=== PATIENT | male | born 1930 | race Native Hawaiian/Other Pacific Islander ===

== ENCOUNTER 2017-09-27 08:54 | Inpatient (IN) ==
[2017-09-27] MEDS ORDERED: 0.9 % SODIUM CHLORIDE 1,000 ML IV ONE ×2 (09:16→10:59)
[2017-09-27] MEDS ORDERED: ONDANSETRON 4 MG/2 ML VIAL IV ONE (09:16)
--- NOTE | 2017-09-27 09:36 | Emergency Department Note ---
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 The metastasis is a new finding. Patient is brought in by because of some nausea and one episode of vomiting today and mild abdominal discomfort. Dr. Wiley has scoped him and done some laser treatment on the bladder ureteral tumor. Patient occasionally has little difficulty urinating but then seems to do well. He does have some mild dementia. History is obtained mainly from the . - Related Data Home Medications Medication Instructions Recorded Confirmed Lisinopril [Zestril] 10 mg PO DAILY 01/04/16 09/27/17 Pravastatin [Pravachol] 20 mg PO HS 01/04/16 09/27/17 aspirin 81 mg chewable tablet 81 mg PO QDAY 01/15/16 09/27/17 docusate sodium 100 mg capsule 100 mg PO QDAY cap 01/15/16 09/27/17 isosorbide dinitrate 30 mg tablet 30 mg PO QHS tab 01/15/16 09/27/17 omeprazole 40 mg capsule,delayed 40 mg PO .QAMAC cap 01/15/16 09/27/17 release Memantine HCl 10 mg PO BID 05/11/17 09/27/17 Allergies Allergy/AdvReac Type Severity Reaction Status Date / Time No Known Drug Allergies Allergy Verified 09/27/17 08:59 Review of Systems All systems ED: reviewed and negative except as stated. Past Medical History - Past Medical History [facility] Narrative: Medical History (Last Reviewed 09/23/17 @ 13:[address], [facility]) Heartburn (Chronic) Indigestion (Chronic) Tired (Chronic) Gout (Chronic 04/12/15) Blood in urine (Chronic) Frequent urination (Chronic) Burning with urination (Chronic) Clostridium difficile colitis (Chronic) Vertigo (Chronic) Fatty liver (Chronic) Gallstones (Chronic) History of diagnostic ultrasound (Chronic) Muscle spasm (Chronic) Lumbar pain (Chronic) Right knee pain (Chronic) Bacterial infection (Chronic) History of FL (myocardial infarction) (Chronic) Hard of hearing (Chronic) Dementia (Chronic) Afebrile (Chronic 01/04/16) Complicated UTI (urinary tract infection) (Chronic 01/04/16) Blood in stool (Chronic 01/04/16) Nausea, vomiting, and diarrhea (Chronic 01/04/16) Decreased urination (Chronic) Kidney stone on right side (Chronic) Kidney cysts (Chronic) Obstructive uropathy (Chronic) UTI (urinary tract infection) (Chronic) Renal failure (Chronic) History of bladder cancer (Chronic) Nausea (Chronic) Diarrhea (Chronic) C. difficile diarrhea (Chronic) Past Surgical History (Last Reviewed 09/23/17 @ 13:[address], [employer]) History of bladder surgery (Chronic) History of colonoscopy (Chronic) History of cystoscopy (Chronic) History of heart bypass surgery (Chronic) History of transurethral resection of prostate (Chronic) Family History (Last Reviewed 09/23/17 @ 13:[address], [employer] DEVELOP[employer]) Father Colon cancer Brother Esophageal cancer Medical history: Reports: coronary artery disease, hypertension, other (gout) Surgical history ED: Reports: appendectomy, herniorrhaphy, prostatectomy - Social History smoking status: Never smoker Alcohol use: Reports: Rarely Drug use: Reports: none Physical Exam Limitations: other General appearance: alert Head: atraumatic, normocephalic Eye: Present: normal appearance ENT: normal exam Neck: Present: normal inspection Chest: Present: normal inspection Respiratory: Present: normal lung sounds bilaterally Cardiovascular: Present: regular rate, normal rhythm, normal heart sounds Abdominal: Present: soft. Absent: distention, tenderness Neurological: Present: alert Psychiatric: Present: normal affect, normal mood Skin: Present: warm, dry, intact Course Vital Signs Temperature 97.0 F 09/27/17 08:54 Pulse Rate 90 09/27/17 08:54 Respiratory Rate 16 09/27/17 08:54 Blood Pressure 160/80 09/27/17 08:54 Pulse Oximetry (%) 98 09/27/17 08:54 Temperature 97.0 F 09/27/17 08:54 Pulse Rate 69 09/27/17 11:08 Respiratory Rate 34 H 09/27/17 11:08 Blood Pressure 185/78 09/27/17 11:08 Pulse Oximetry (%) 99 09/27/17 11:08 Medical Decision Making - MDM Narrative Medical decision making narrative: I discussed this case with Dr. Fam the wall attendant who did not feel he was a dialysis candidate and Dr. Veloz who will admit him to the hospital. We will institute the hyperkalemia protocol. Family is in the process of deciding what they want to do as far as aggressiveness and comfort care for the patient. - Lab Data Lab results reviewed: Yes I reviewed the patient's lab results. Result diagrams: 09/27/17 09:29 09/27/17 09:29 Lab Results 09/27/17 09/27/17 Range/Units : 09:29 WBC 10.5 (4.5-11.0) K/mcL RBC 3.53 L (4.50-5.90) M/mcL Hgb 10.0 L (13.5-16.5) g/dL Hct 29.1 L (41.0-55.0) % MCV 82.4 (80.0-100.0) fL MCH 28.3 (26.0-34.0) pg MCHC 34.3 (31.0-36.0) g/dL RDW 15.0 H (11.5-14.5) % Plt Count 268 (140-440) K/mcL MPV 8.4 (7.4-10.4) fL Gran % 63.7 (38.0-78.0) % Lymph % (Auto) 28.9 (15.5-49.0) % [place] % (Auto) 4.5 (1.0-12.0) % Eos % (Auto) 2.6 (0.0-7.0) % Baso % (Auto) 0.3 (0.0-2.0) % Gran # 6.7 (1.8-8.0) K/mcL Lymph # (Auto) 3.0 (1.5-4.8) K/mcL [place] # (Auto) 0.5 (0.1-0.9) K/mcL Eos # (Auto) 0.3 (0.0-0.7) K/mcL Baso # (Auto) 0 (0.0-0.3) K/mcL Sodium 138 (133-145) mmol/L Potassium 5.9 H* (3.3-5.1) mmol/L Chloride 100 (96-108) mmol/L Carbon Dioxide 18 L (22-30) mmol/L Anion Gap 20.0 H (8-16) BUN 83 H (8-23) mg/dl Creatinine 7.1 H* (0.7-1.2) mg/dl GFR Calculation 6 Glucose 101 (70-105) mg/dL Calcium 9.0 (8.6-10.4) mg/dl Total Bilirubin 0.3 (0.0-1.0) mg/dL AST 17 (0-37) U/l ALT 14 (0-40) U/l Alkaline Phosphatase 74 (39-117) U/L Total Protein 6.9 (5.9-8.4) gm/dL Albumin 3.3 (3.2-5.2) gm/dL Globulin 3.6 (2.2-3.7) gm/dL Albumin/Globulin Ratio 0.9 L (1.0-2.3) Disposition Pt seen by [facility]UTTER/PA only: No Clinical Impression: Dehydration, Renal failure, Hyperkalemia Disposition: Xfer As Inpt ([facility]) Condition: Fair Referrals: Alma Serrano ARNP [Primary Care Provider] - Time of Disposition: 11:32
[2017-09-27 10:10] LABS: Basophils # (Auto) 0 K/mcL (0.0-0.3); Basophils % (Auto) 0.3 % (0.0-2.0); Eosinophils # (Auto) 0.3 K/mcL (0.0-0.7); Eosinophils % (Auto) 2.6 % (0.0-7.0); Granulocytes % (Auto) 63.7 % (38.0-78.0); Lymphocytes % (Auto) 28.9 % (15.5-49.0); Mean Cell Volume 82.4 fL (80.0-100.0); Mean Corpuscular HGB Conc 34.3 g/dL (31.0-36.0); Mean Corpuscular Hemoglobin 28.3 pg (26.0-34.0); Monocytes # (Auto) 0.5 K/mcL (0.1-0.9); Monocytes % (Auto) 4.5 % (1.0-12.0); Platelet Count 268 K/mcL (140-440); RBC 3.53 M/mcL (4.50-5.90)
[2017-09-27 10:35] LABS: ALT/SGPT 14 U/l (0-40); Albumin 3.3 gm/dL (3.2-5.2); Albumin/Globulin Ratio 0.9 (1.0-2.3); Alkaline Phosphatase 74 U/L (39-117); Blood Urea Nitrogen 83 mg/dl (8-23)
[2017-09-27] MEDS ORDERED: LIDOCAINE JEL 2% 1 TUBE 30GM TOPICAL ONE ×2 (10:52→11:46)
[2017-09-27] MEDS ORDERED: SODIUM POLYSTYRENE SULFONATE 15 GM/60 ML SUSPENSION PO ONE (10:59)
[2017-09-27] MEDS ORDERED: CALCIUM CHLORIDE 1,000 MG/10 ML SYRINGE IV ONE (10:59)
[2017-09-27] MEDS ORDERED: HYDROmorphone 2 MG/ML VIAL IV PRN (10:59)
[2017-09-27] MEDS ORDERED: ALBUTEROL SULFATE 5 MG/ML NEB SOLUTION BOTTLE NEB ONE (10:59)
[2017-09-27] MEDS ORDERED: FUROSEMIDE 40 MG/4 ML VIAL IV ONE (10:59)
[2017-09-27] MEDS ORDERED: INSULIN REGULAR, HUMAN 1 UNIT/0.01 ML UNIT IV ONE (10:59)
[2017-09-27] MEDS ORDERED: DEXTROSE 50% 50 ML VIAL IV ONE (10:59)
[2017-09-27] MEDS ORDERED: ONDANSETRON 4 MG/2 ML VIAL ONE (11:10)
[2017-09-27] MEDS: ONDANSETRON 4 MG/2 ML VIAL IV ONE ×2 (11:13→11:28)
--- NOTE | 2017-09-27 12:24 | Nephrology Consult Note ---
History of Present Illness - Reason for Consult Patient information: Note initiated : 09/27/17 at 12:21 pm Service Date, if different from initiated Date: [] Patient: Denys Nina a 87 y/o M admitted on for N/V. Chief Complaint: [] Consult date: 09/27/17 acute renal failure Requesting physician: Eugene Alonzo - Chief Complaint nausea,vomiting - History of Present Illness Mr Nina is a 87 y/o white male with PMH of dementia, HTN, CAD, metastatic bladder cancer who presented to ED with c/o nausea, vomiting and mild abdominal discomfort Patient has h/o metastatic bladder cancer, metastasis to lung diagnosed last month. Patient has not been feeling well for the last 3 weeks and has been eating very little food and also not drinking much fluid, the states he atleast started drinking some water and protein drinks a week ago. He started having some nausea, vomiting and abdominal pain today and hence she brought him to ER. Patient has h/o dementia and he could not give/provide meaningful information. He did deny SOB, pain, chest pain/dizziness. No c/o LE edema no urinary symptoms no other issues reported Patient was noted to have s.creatinine of more than 7 and moderate hyperkalemia and hence nephrology was called He was given hyperkalemia protocol in the ER Review of Systems ROS unobtainable: due to mental status (Limited due to dementia) Past History Past medical history: HTN Dyslipidemia CAD dementia bladder cancer metastatic Past surgical history: recent surgical interventions for bladder cancer Past family history: not pertinent Past social history: lives with his in [place], PCP at [facility] currently no addictions Medications and Allergies Home Medications Medication Instructions Recorded Confirmed Type Lisinopril [Zestril] 10 mg PO DAILY 01/04/16 09/27/17 History Pravastatin [Pravachol] 20 mg PO HS 01/04/16 09/27/17 History aspirin 81 mg chewable tablet 81 mg PO QDAY 01/15/16 09/27/17 History docusate sodium 100 mg capsule 100 mg PO QDAY cap 01/15/16 09/27/17 History isosorbide dinitrate 30 mg tablet 30 mg PO QHS tab 01/15/16 09/27/17 History omeprazole 40 mg capsule,delayed 40 mg PO .QAMAC cap 01/15/16 09/27/17 History release Memantine HCl 10 mg PO BID 05/11/17 09/27/17 History Allergies Allergy/AdvReac Type Severity Reaction Status Date / Time No Known Drug Allergies Allergy Verified 09/27/17 08:59 Exam - Vital Signs Vital signs: Temp Pulse Resp BP Pulse Ox 97.0 F 126 H 17 134/79 95 09/27/17 08:54 09/27/17 12:16 09/27/17 12:16 09/27/17 12:16 09/27/17 12:16 - General Appearance General appearance: appears started age, chronically ill, frail EENT: mucous membranes dry Neck: no JVD Respiratory: clear (CTA) Cardiology: no rub, no edema, normal S1, normal S2 Gastrointestinal: tenderness (MILD TENDERNESS IN PERIUMBILICAL REGION) Integumentary: no rash, warm and dry Neurologic: confused Musculoskeletal: no erythema, no cyanosis Psychiatric: mood/affect appropriate Results - Lab Results 09/27/17 09:29 09/27/17 09:29 Most recent lab results Calcium 9.0 mg/dl (8.6-10.4) 09/27/17 09:29 Assessment and Plan (1) Acute on chronic renal failure acute on chronic renal failure likely dehydration, use of lisinopril contributing non oliguric, has made 300cc urine when sharp was placed need to r/o obstructive etiology, renal US ordered, also will obtain urinary studies he has received hyperkalemia protocol, will recheck labs continue IV hydration BP is a little elevated, if persistent would add amlodipine hold ACEI not a dialysis candidate given dementia and metastatic cancer, no emergent need for the same patient is DNR but would need to discuss goals of care this hospitalisation will follow along Thank you for giving me an opportunity to participate in Mr Nina's medical care , appreciate it Status: Acute
[2017-09-27 12:40] LABS: Appearance,Urine CLEAR; Bacteria,Urine 0 /hpf (0); Bilirubin,Urine NEG (NEG); Color,Urine STRAW; Glucose,Urine (UA) NEGATIVE (NEG); Leukocyte Esterase,Urine NEG /uL (NEG); Mucus,Urine FEW /hpf (0); Protein,Urine NEG (NEG); Specific Gravity,Urine 1.008 (1.000-1.035); Urine Amorphous Crystals MOD /hpf (0); Urine Blood 0.2 mg/dL (<0.03); Urine RBC 6 /hpf (0-1); Urine Squamous Epithelial Cell < 1 /hpf (0-4); Urine WBC 2 /hpf (0-4); Urobilinogen,Urine NEG (NEG)
[2017-09-27] MEDS ORDERED: ONDANSETRON 4 MG/2 ML VIAL IV PRN (12:51)
[2017-09-27] MEDS ORDERED: NON FORMULARY MEDICATION 1 DOSE MISCELL (Omeprazole 40 MG) PO SCH (12:51)
[2017-09-27 12:56] LABS: Creatinine,Urine Random 58.2 mg/dl
[2017-09-27] MEDS: 0.9 % SODIUM CHLORIDE 10 ML SYRINGE IV SCH ×2 (14:00→20:37)
--- NOTE | 2017-09-27 15:03 | Ultrasound Report ---
History: Acute renal failure Findings: The right kidney measures 6.2 x 7.0 x 12.4 cm and the left measures 4.7 x 6.6 x 11.6 cm. Mild bilateral hydronephrosis is present. The ureters are obscured by overlying bowel gas. There are multiple cysts in the right kidney. The largest is in the lower pole and measures 1.5 x 1.6 x 2.0 cm. In the upper pole of the left kidney there is a 2.6 x 3.1 x 3.4 cm cyst. In the upper hilar region of the left kidney there is a 4.3 x 4.2 cm cyst. No solid mass or calculus are present in either kidney. The renal parenchyma is normal thickness and echogenicity. Urinary bladder is decompressed by Chicas catheter. We are unable to visualize the distal ureters. Impression: Mild bilateral hydronephrosis Bilateral simple cysts in both kidneys Interpreted and Authenticated by: Cm Mireles 09/27/17
--- NOTE | 2017-09-27 15:33 | History and Physical Report ---
DATE OF ADMISSION: 09/27/2017 DATE OF ADMISSION: 09/27/2017 REASON FOR ADMISSION: Weakness, fatigue, lack of appetite and inability to function. HISTORY OF CHIEF COMPLAINT: The patient is an 87-year-old with known history of metastatic bladder cancer status post stenting and has been managed by Dr. Wiley. He lives with his and has been in his baseline state of health until roughly 2 to 2-1/2 weeks prior to presentation. The patient has been feeling increasingly weak with gradually progressive lower back pain radiating to his flanks. Over the ensuing couple of weeks, the patient has lost 4 Lbs weight along with loss of appetite, fatigue, lethargy, and inability to function. With worsening symptoms and concerns of the family, patient comes to [facility] Emergency Room and is accompanied with his Harinder, daughter and son. Initial evaluation in the ER was significant for creatinine of 7 along with potassium of 5.9. The patient was started on hyperkalemia protocol. Hospitalist Service was consulted while Nephrology was consulted for evaluation of acute renal failure. At the time of evaluation, the patient is accompanied with his , daughter and son. He was able to provide some of the history. He is fairly anxious. Most of the history was obtained from patient's and medical records. The patient denies chest pain, headache, fever, lightheadedness, changes in recent medications, or NSAID intake. He further denies bleeding, joint swelling, glandular swelling, shortness of breath. He definitely feel confused and weak and total lack of energy. REVIEW OF SYSTEMS: Ten-point review of system was performed and negative except the ones discussed above. PAST MEDICAL HISTORY: 1. Bladder cancer. 2. Dementia. 3. Coronary artery disease. 4. Dyslipidemia. 5. Hypertension. 6. GERD. CURRENT MEDICATIONS: Memantine 10 mg twice daily. Omeprazole 40. Isosorbide 30. Docusate 100. Aspirin 81. Pravastatin 20. Lisinopril 10. ALLERGIES: None significant. SOCIAL HISTORY: The patient lives with his Harinder in [place]. He has a son and daughter who live close by. The patient's primary care physician is nurse practitioner __. Denies alcoholism or smoking. FAMILY HISTORY: No relevant given advanced age. PHYSICAL EXAMINATION: GENERAL: The patient is alert but anxious. BMI 21. Height 5 feet 7 inches. VITAL SIGNS: Blood pressure 144/86, respiratory rate 18, temperature 97, pulse 126, saturation 95 percent on 2 liters of oxygen. HEENT: Pupils symmetric. Oral cavity dry. No ear or nose discharge. Head is normocephalic and atraumatic. NECK: No lymphadenopathy. HEART: S1, S2, tachycardia. ESM grade 1. CHEST: Diminished breath sounds bilateral bases. Sternotomy midline incision. ABDOMEN: Soft but tender around the flanks and suprapubic area. LOWER EXTREMITIES: No cyanosis or clubbing. No joint swelling. SKIN: No suspicious lesions but mild pallor. No joint swelling or erythema. PSYCH: Alert, cooperative, mild anxiety. NEURO: Nonfocal, moving all four extremities. LABS AND IMAGING: White count 10.5, hemoglobin 10, platelets 268. Sodium 130, potassium 5.9, creatinine 7.1, BUN 83, and anion gap 20. UA unremarkable. Renal ultrasound pending. ASSESSMENT AND PLAN: 1. Acute renal failure secondary likely to obstructive nephropathy. The patient is status post stenting performed by Dr. Wiley in the past. Renal ultrasound is pending. Crystalloids are being administered. Chicas catheter was promptly placed. Nephrology is onboard. 2. Metastatic cancer managed by urology 3. Hyperkalemia. Start hyperkalemia protocol. Repeat BMP in 6 hours. 4. Other prior medical issues: The patient will be restarted on home medications except for antihypertensives until renal function clinically improved. PLAN: 1. Admit as inpatient to PCU. 2. Hyperkalemia protocol. 3. Nephrology consultation. 4. Renal ultrasound. 5. Urology consultation if significant hydronephrosis and need for renal decompression. 6. Preexisting conditions will be managed on home meds. 7. Hospice consult as per family wishes in light of patient's advanced dementia. AA:emmanuel Job ID: [id number] Doc ID: [id number] Brent LANDA
[2017-09-27 18:48] LABS: Blood Urea Nitrogen 79 mg/dl (8-23)
[2017-09-27] MEDS: MEMANTINE 10 MG TABLET PO SCH (20:35)
[2017-09-27] MEDS: HEPARIN 5,000 UNIT/ML VIAL SQ SCH (20:35)
[2017-09-27] MEDS: DOCUSATE SODIUM 100 MG CAPSULE PO SCH (20:36)
[2017-09-27] MEDS ORDERED: SENNOSIDES/DOCUSATE SODIUM 1 TAB TABLET PO SCH (21:00)
[2017-09-27] MEDS ORDERED: SIMVASTATIN 10 MG TABLET PO SCH (21:00)
[2017-09-27] MEDS ORDERED: ISOSORBIDE DINITRATE 10 MG TABLET PO SCH (21:00)
[2017-09-28 04:54] LABS: Mean Cell Volume 82.5 fL (80.0-100.0); Mean Corpuscular HGB Conc 33.6 g/dL (31.0-36.0); Mean Corpuscular Hemoglobin 27.7 pg (26.0-34.0); Platelet Count 245 K/mcL (140-440); RBC 3.25 M/mcL (4.50-5.90); Red Cell Distribution Width 14.9 % (11.5-14.5)
[2017-09-28 05:21] LABS: ALT/SGPT 12 U/l (0-40); Albumin 3.2 gm/dL (3.2-5.2); Alkaline Phosphatase 65 U/L (39-117); Bilirubin,Direct < 0.2 mg/dL (0.0-0.3); Blood Urea Nitrogen 78 mg/dl (8-23); Gamma Glutamyl Transpeptidase 27 U/L (8-61); Uric Acid 11.1 mg/dL (2.5-8.0)
[2017-09-28] MEDS: ACETAMINOPHEN 325 MG TABLET PO PRN ×2 (05:25→09:18)
[2017-09-28] MEDS: 0.9 % SODIUM CHLORIDE 10 ML SYRINGE IV SCH ×3 (05:25→20:45)
[2017-09-28 05:43] LABS: Anisocytosis 1+ (NONE SEEN); Lymphocytes % 23 % (15-49); Monocytes % (Manual) 6 % (1-12); Ovalocytes 1+ (NONE SEEN); Platelet Estimate NORMAL (NORMAL); RBC Morphology ABNORM (NORMAL); Segmented Neutrophils % 71 % (38-78)
[2017-09-28] MEDS ORDERED: OMEPRAZOLE 20 MG CAPSULE PO SCH (07:30)
[2017-09-28] MEDS ORDERED: DOCUSATE SODIUM 100 MG CAPSULE PO SCH (09:00)
[2017-09-28] MEDS ORDERED: ASPIRIN 81 MG TAB.CHEW PO SCH (09:00)
[2017-09-28] MEDS: MEMANTINE 10 MG TABLET PO SCH ×2 (09:01→20:43)
[2017-09-28] MEDS: DOCUSATE SODIUM 100 MG CAPSULE PO SCH ×2 (09:02→20:40)
[2017-09-28] MEDS: HEPARIN 5,000 UNIT/ML VIAL SQ SCH ×2 (09:02→20:42)
[2017-09-28] MEDS: CALCIUM ACETATE 667 MG CAPSULE PO SCH ×3 (10:00→18:19)
--- NOTE | 2017-09-28 12:19 | Internal Med Progress Note ---
Medical - PN: Subj Patient information: Note initiated : 09/28/17 at 12:16 pm Service Date, if different from initiated Date: [] Patient: Denys Nina 87 y/o M admitted on 09/27/17 for N/V, Dehydration, Renal Failure, Hyperkalemia. Chief Complaint: [] Interval history: patient admitted with acute renal failure/hyperkalemia. obstructive uropathy in the setting of bladder cancer. Started on hypokalemia protocol. Nephrology on board. Admitted to ICU. 09/28- Case discussed with family and nephrology. Family considering hospice placement however would like to discuss case with urology. Subsequently Dr. Wiley urology consulted. Await further recommendations from family for initiation of hospice and end-of-life care. 20 otherwise no telemetry events. No overnight fever chills or concerns per staff. Patient sitting in chair eating breakfast. Pleasantly demented without any agitation or confusion - Constitutional Vitals: Vital Signs Temp Pulse Resp BP Pulse Ox 98.6 F 119 H 20 154/90 96 09/28/17 11:49 09/27/17 13:45 09/28/17 11:49 09/28/17 11:49 09/28/17 11:49 Period Temp Pulse Resp BP Sys/Andrade Pulse Ox Last 24 Hr 97.0 F-98.8 F 119-124 16-26 119-160/60-104 92-98 Intake and Output 09/27/17 09/28/17 09/28/17 21:59 05:59 13:59 Intake Total 360 / 360 Output Total 575 / 575 850 / 850 Balance -575 / -575 -490 / -490 Weight 137 lb 4.8 oz Intake & Output: Intake & Output 09/27/17 09/28/17 09/28/17 21:59 05:59 13:59 Intake Total 360 / 360 Output Total 575 / 575 850 / 850 Balance -575 / -575 -490 / -490 Weight 137 lb 4.8 oz Intake: Oral 360 / 360 Output: Urine Catheter Amount 575 / 575 850 / 850 Other: Stool Size Small Stool Color Brown Stool Consistency Liquid # of times incontinent of 1 Bowels General appearance: cooperative, no acute distress Exam: alert Minimally confused nonlabored breathing Foleys draining clear urine Medical - PN: Obj Da - Labs CBC & Chem 7: 09/28/17 04:00 09/28/17 04:00 Labs: Abnormal Lab Results 09/28/17 09/28/17 09/27/17 04:00 04:00 17:55 WBC 11.6 H RBC 3.25 L Hgb 9.0 L Hct 26.8 L RDW 14.9 H RBC Morphology Abnorm A Anisocytosis 1+ A Ovalocytes 1+ A Potassium 5.4 H Carbon Dioxide 21 L 18 L Anion Gap 17.0 H 21.0 H BUN 78 H 79 H Creatinine 6.9 H* 6.7 H* Glucose 112 H 156 H Uric Acid 11.1 H Phosphorus 7.2 H* Albumin/Globulin Ratio Urine Occult Blood Urine RBC Amorphous Crystals 09/27/17 09/27/17 09/27/17 11:33 09:29 09:29 WBC RBC 3.53 L Hgb 10.0 L Hct 29.1 L RDW 15.0 H RBC Morphology Anisocytosis Ovalocytes Potassium 5.9 H* Carbon Dioxide 18 L Anion Gap 20.0 H BUN 83 H Creatinine 7.1 H* Glucose Uric Acid Phosphorus Albumin/Globulin Ratio 0.9 L Urine Occult Blood 0.2 A Urine RBC 6 H Amorphous Crystals Mod A Meds: Medications Acetaminophen (Tylenol) 650 mg PO Q4-6HP PRN PRN Reason: PAIN/FEVER > 101 Last Admin: 09/28/17 09:18 Dose: 650 mg Aspirin (Aspirin) 81 mg PO QDAY [facility] Last Admin: 09/28/17 09:01 Dose: 81 mg Calcium Acetate (Phoslo) 667 mg PO TIDCC [facility] Last Admin: 09/28/17 12:09 Dose: 667 mg Docusate Sodium (Colace) 100 mg PO BID [facility] Last Admin: 09/28/17 09:02 Dose: Not Given Heparin Sodium (Porcine) (Heparin) 5,000 unit SQ Q12 [facility] Last Admin: 09/28/17 09:02 Dose: 5,000 unit Isosorbide Dinitrate (Isordil) 30 mg PO HS [facility] Last Admin: 09/27/17 20:36 Dose: 30 mg Memantine (Namenda) 10 mg PO BID [facility] Last Admin: 09/28/17 09:01 Dose: 10 mg Omeprazole (Prilosec) 40 mg PO ACB [facility] Last Admin: 09/28/17 08:09 Dose: 40 mg Ondansetron HCl (Zofran) 4 mg IV Q4-6HP PRN PRN Reason: Nausea And Vomiting Last Admin: 09/28/17 12:09 Dose: 4 mg Senna/Docusate Sodium (Senna Plus Tablet) 1 tab PO HS [facility] Last Admin: 09/27/17 20:36 Dose: Not Given Simvastatin (Zocor) 10 mg PO HS [facility] Last Admin: 09/27/17 20:36 Dose: 10 mg Sodium Chloride (Saline Flush) 10 ml IV Q8 [facility] Last Admin: 09/28/17 05:25 Dose: 10 ml Medical - PN: A/P - Time Spent With Patient Total time spent is greater than 50% in coordination of care (as documented) at patient's floor/unit and/or counseling patient: 15 - 24 minutes (1) Acute on chronic renal failure Status: Acute Assessment and plan: * Acute renal failure- nephrology on board. Likely obstructive in the setting of bladder tumor with metastasis. Creatinine 6.9. Case discussed with radiology. Recommends discontinuation of Chicas's catheter * hypokalemia down from 5.9-5.4. Status post hypokalemia protocol * Obstructive uropathy status post stenting in the past. Managed by Dr. Wiley urology * history of dementia at baseline. Continue memantine * History of CAD on aspirin and isosorbide/statin/lisinopril * DNR Plan * Dc foleys * Hospice consult * ARF mx per nephrology * pre-existing medical condition management as above Current Visit: Yes Medical - PN: Qual - VTE Deep Vein Thrombosis/Pulmonary Embolism Present on Admission: No
--- NOTE | 2017-09-28 13:27 | Nephrology Progress Note ---
Subjective Patient information: Note initiated : 09/28/17 at 1:25 pm Service Date, if different from initiated Date: [] Patient: Denys Nina 87 y/o M admitted on 09/27/17 for N/V, Dehydration, Renal Failure, Hyperkalemia. Chief Complaint: [] Principal diagnosis: acute renal failure Interval history: received IVF with no improvement in renal function, though non oliguric renal US shows mild hydronephrosis patient denies SOB, CP no edema eating ok no reports of nausea, vomiting no other GI issues Pertinent ROS: as listed above Objective - Vital Signs Vital signs: Vital Signs Temp Pulse Resp BP BP Pulse Ox 09/28/17 11:49 98.6 F 20 154/90 96 09/28/17 09:18 97.7 F 09/28/17 09:01 160/90 09/28/17 08:23 22 144/74 09/28/17 08:01 97.7 F 143/104 92 09/28/17 07:30 92 09/28/17 07:01 145/78 09/28/17 06:01 151/86 09/28/17 05:01 23 H 152/90 98 09/28/17 04:01 98.8 F 20 136/79 96 09/28/17 03:01 21 143/73 98 09/28/17 02:01 26 H 149/69 98 09/28/17 01:01 22 127/85 95 09/28/17 00:01 20 131/76 96 09/28/17 00:00 97 09/27/17 23:01 23 H 135/86 97 09/27/17 22:24 19 139/79 95 09/27/17 20:01 22 142/60 94 09/27/17 18:00 96 09/27/17 16:00 98.1 F 16 119/64 98 09/27/17 13:45 98 F 119 H 18 144/86 95 Intake and Output 09/27/17 09/28/17 09/28/17 21:59 05:59 13:59 Intake Total 360 / 360 Output Total 575 / 575 850 / 850 Balance -575 / -575 -490 / -490 Intake: Oral 360 / 360 Output: Urine Catheter Amount 575 / 575 850 / 850 Other: Stool Size Small Stool Color Brown Stool Consistency Liquid # of times incontinent of 1 Bowels Weight 137 lb 4.8 oz Intake & Output: Intake & Output 09/27/17 09/28/17 09/28/17 21:59 05:59 13:59 Intake Total 360 / 360 Output Total 575 / 575 850 / 850 Balance -575 / -575 -490 / -490 Weight 137 lb 4.8 oz Intake: Oral 360 / 360 Output: Urine Catheter Amount 575 / 575 850 / 850 Other: Stool Size Small Stool Color Brown Stool Consistency Liquid # of times incontinent of 1 Bowels - General Appearance General appearance: appears started age, chronically ill, frail EENT: mucous membranes moist Neck: no JVD Respiratory: clear Cardiology: no rub, no edema, normal S1, normal S2 Gastrointestinal: no tenderness, no guarding Integumentary: warm and dry Neurologic: no focal deficit, confused Musculoskeletal: no erythema, no cyanosis Psychiatric: mood/affect appropriate - Lab 09/28/17 04:00 09/28/17 04:00 Most recent lab results Calcium 8.6 mg/dl (8.6-10.4) 09/28/17 04:00 Phosphorus 7.2 mg/dL (2.7-4.5) H* 09/28/17 04:00 Magnesium 1.6 mg/dL (1.6-2.5) 09/28/17 04:00 Assessment and Plan (1) Acute on chronic renal failure s.creatinine still at 6.9 non oliguric K is at 5.4 again, mild acidosis did receive 4L of IVF with no significant change in renal function UA shows no proteinuria, some RBC fena is 2.8% no uremic symptoms, fluid status stable mild K issues and mild acidosis basically no emergent need for [employer] not a candidate for long-term dialysis, discussed at length with family given metastatic bladder cancer and dementia may furtehr worsen quality of life they are leaning towards hospice and they are requesting urology opinion, requested Dr Wilcox to call urology add phoslo, will add bicarb would treat hyperkalemia medically if worsens while awaiting family decision on goals of care Will follow along Status: Acute
[2017-09-28] MEDS ORDERED: ACETAMINOPHEN 325 MG TABLET PO PRN (17:40)
[2017-09-28] MEDS ORDERED: ONDANSETRON 4 MG/2 ML VIAL IV PRN (17:40)
[2017-09-28] MEDS: SODIUM BICARBONATE 650 MG TABLET PO SCH (20:43)
[2017-09-28] MEDS ORDERED: SIMVASTATIN 10 MG TABLET PO SCH (21:00)
[2017-09-28] MEDS ORDERED: SENNOSIDES/DOCUSATE SODIUM 1 TAB TABLET PO SCH (21:00)
[2017-09-28] MEDS ORDERED: ISOSORBIDE DINITRATE 10 MG TABLET PO SCH (21:00)
[2017-09-28] MEDS ORDERED: SODIUM BICARBONATE 650 MG TABLET PO SCH (21:00)
[2017-09-29] MEDS: 0.9 % SODIUM CHLORIDE 10 ML SYRINGE IV SCH (05:41)
[2017-09-29 05:53] LABS: Mean Corpuscular HGB Conc 33.1 g/dL (31.0-36.0); Mean Corpuscular Hemoglobin 27.5 pg (26.0-34.0); Platelet Count 247 K/mcL (140-440); RBC 3.29 M/mcL (4.50-5.90); Red Cell Distribution Width 15.5 % (11.5-14.5)
[2017-09-29 06:40] LABS: ALT/SGPT 13 U/l (0-40); Albumin 2.9 gm/dL (3.2-5.2); Albumin/Globulin Ratio 0.8 (1.0-2.3); Alkaline Phosphatase 71 U/L (39-117); Bilirubin,Direct < 0.2 mg/dL (0.0-0.3); Blood Urea Nitrogen 79 mg/dl (8-23); Gamma Glutamyl Transpeptidase 32 U/L (8-61); Uric Acid 10.6 mg/dL (2.5-8.0)
[2017-09-29] MEDS ORDERED: OMEPRAZOLE 20 MG CAPSULE PO SCH (07:30)
[2017-09-29 07:39] LABS: Eosinophils % (Manual) 2 % (0-7); Lymphocytes % 35 % (15-49); Monocytes % (Manual) 2 % (1-12); Platelet Estimate NORMAL (NORMAL); RBC Morphology NORMAL (NORMAL); Segmented Neutrophils % 61 % (38-78)
[2017-09-29] MEDS ORDERED: CALCIUM ACETATE 667 MG CAPSULE PO SCH (08:00)
[2017-09-29] MEDS: DOCUSATE SODIUM 100 MG CAPSULE PO SCH (08:23)
[2017-09-29] MEDS: HEPARIN 5,000 UNIT/ML VIAL SQ SCH (08:23)
[2017-09-29] MEDS: SODIUM BICARBONATE 650 MG TABLET PO SCH (08:30)
[2017-09-29] MEDS: MEMANTINE 10 MG TABLET PO SCH (08:30)
[2017-09-29] MEDS ORDERED: ASPIRIN 81 MG TAB.CHEW PO SCH (09:00)
--- NOTE | 2017-09-29 11:29 | Discharge Summary ---
Medical - DS: Prov Patient information: Note initiated : 09/29/17 at 11:23 am Service Date, if different from initiated Date: [] Patient: Denys Nina 87 y/o M admitted on 09/27/17 for N/V, Dehydration, Renal Failure, Hyperkalemia. Chief Complaint: [] Date of admission: 09/27/17 12:50 Discharge date: 09/29/17 Primary care physician: Alma Serrano Consults: 09/27/17 10:59 Consult to Physician [CONS] Stat Comment: Consulting Provider: Julee Fam Reason For Exam: Physician to Consult 09/27/17 11:04 Consult to Physician [CONS] Stat Comment: Consulting Provider: Brent Wilcox Reason For Exam: Physician to Consult Medical - DS: Meds - Discharge Medications Active and Home Medications: Home Medications Lisinopril [Zestril] 10 mg PO DAILY 01/04/16 [History Confirmed 09/27/17 Last Taken 05/20/17] Pravastatin [Pravachol] 20 mg PO HS 01/04/16 [History Confirmed 09/27/17 Last Taken 05/20/17] aspirin 81 mg chewable tablet 81 mg PO QDAY 01/15/16 [History Confirmed Last Taken 05/20/17] docusate sodium 100 mg capsule 100 mg PO QDAY cap 01/15/16 [History Confirmed 09/27/17 Last Taken 05/20/17] isosorbide dinitrate 30 mg tablet 30 mg PO QHS tab 01/15/16 [History Confirmed 09/27/17 Last Taken 05/20/17] omeprazole 40 mg capsule,delayed release 40 mg PO .QAMAC cap 01/15/16 [History Confirmed 09/27/17 Last Taken 05/20/17] Memantine HCl 10 mg PO BID 05/11/17 [History Confirmed 09/27/17 Last Taken 05/20] Medical - DS: Hosp Hospital course: DISCHARGE DIAGNOSIS * Acute renal failure- renal function progressively deteriorating. Patient now on hospice. No further interventions. Likely obstructive in the setting of bladder tumor with metastasis. Foleys catheter discontinued as per urology recommendations * hyperkalemia-potassium down to 4.9 from 5.9 * Obstructive uropathy status post stenting in the past. Managed by Dr. Wiley urology. patient is hospice in light of bladder cancer with metastasis * history of dementia at baseline. Continue memantine * History of CAD continue aspirin and isosorbide/statin/lisinopril. However in medications can be stopped once hospice is set up * DNR/hospice Brief hospital course Mr. Nina is a 87 year old M patient admitted with acute renal failure/ hyperkalemia. obstructive uropathy in the setting of bladder cancer. Started on hypokalemia protocol. Nephrology on board. Admitted to ICU. 09/28- Case discussed with family and nephrology. Family considering hospice placement however would like to discuss case with urology. Subsequently Dr. Wiley urology consulted. Await further recommendations from family for initiation of hospice and end-of-life care. 20 otherwise no telemetry events. No overnight fever chills or concerns per staff. Patient sitting in chair eating breakfast. Pleasantly demented without any agitation or confusion 09/29. Patient doing well however worsening renal function. Case discussed with nephrology and urology with family and subsequently family decided for discharge with home hospice for continued end of life care in the setting of metastatic bladder cancer. Case management to coordinate in home hospice set up. Patient discharged home in stable state any Discharge diagnosis: . - Time Spent with Patient Total time spent providing and/or coordinating discharge services: Greater than 30 minutes Medical - DS: Exam - Constitutional Vitals: Vital Signs Temp Pulse Resp BP BP Pulse Ox 09/29/17 07:26 98.7 F 18 155/102 96 09/29/17 04:00 98.5 F 20 160/94 91 09/29/17 00:00 98.7 F 20 179/96 93 09/28/17 20:00 92 09/28/17 19:12 98.7 F 16 159/80 92 09/28/17 17:40 95 H 20 94 09/28/17 16:00 98 F 15 153/90 96 09/28/17 15:50 87 20 163/90 94 09/28/17 15:01 16 160/83 09/28/17 14:01 17 160/83 09/28/17 13:01 21 158/95 09/28/17 12:47 93 09/28/17 11:52 15 154/90 95 09/28/17 11:49 98.6 F 20 154/90 96 Intake and Output 09/28/17 09/29/17 09/29/17 21:59 05:59 13:59 Intake Total 360 / 360 330 / 330 540 / 540 Output Total 551 / 551 100 / 100 Balance -191 / -191 325 / 325 440 / 440 Intake: Oral 360 / 360 330 / 330 540 / 540 Output: Urine Catheter Amount 550 / 550 Void Amount 100 / 100 # of times incontinent of urine Other: Meal Lunch Percent of Meal Consumed 100% Feeding Ability Needs Supervision Weight 137 lb 6.4 oz Medical - DS: Data Labs on day of discharge: Labs from last 24 hours 09/29/17 09/29/17 03:57 03:57 WBC 12.4 H RBC 3.29 L Hgb 9.1 L Hct 27.3 L MCV 83.0 MCH 27.5 MCHC 33.1 RDW 15.5 H Plt Count 247 MPV 8.7 Total Counted 100 Seg Neutrophils % 61 Band Neutrophils % Not Reportable Lymphocytes % 35 Monocytes % (Manual) 2 Eosinophils % (Manual) 2 Platelet Estimate Normal RBC Morphology Normal Sodium 144 Potassium 4.9 Chloride 104 Carbon Dioxide 21 L Anion Gap 19.0 H BUN 79 H Creatinine 7.1 H* GFR Calculation 6 Glucose 86 Uric Acid 10.6 H Calcium 8.8 Phosphorus 7.0 H* Magnesium 1.6 Total Bilirubin 0.3 Direct Bilirubin < 0.2 GGT 32 AST 16 ALT 13 Alkaline Phosphatase 71 Lactate Dehydrogenase 200 Total Protein 6.4 Albumin 2.9 L Globulin 3.5 Albumin/Globulin Ratio 0.8 L Triglycerides 76 Medical - DS: A/P - Patient/Caregiver Discharge Instructions Activity: increase activity as tolerated Diet: Regular Diet Additional Instructions: hospice set up per case management Home medications can be discontinued once on hospice as per PCP activity and diet for comfort - Problem Maintenance (1) Acute on chronic renal failure Status: Acute - Follow up Plan Follow up with: Alma Serrano ARNP [Primary Care Provider] - (Schedule an appointment with your PCP as needed.) Disposition: Hospice - Home Prognosis: Fair Rehab Potential: Undetermined I certify that the patient requires SNF services: No Overall status at discharge: patient is not back to baseline Medical - DS: Qual - VTE Deep Vein Thrombosis/Pulmonary Embolism Present on Admission: No
== END 2017-09-29 12:00 | disposition hospice, home (50) | DRG 683 ==
LOC: ED 08:54 → ICU 12:50
PROVIDERS: ADMIT Internal Medicine; ATTEND Internal Medicine